=== PATIENT | male | born 1955 | race Caucasian/White ===

== ENCOUNTER 2017-08-28 12:49 | Emergency (ER) | payer OTHER ==
[~2017-08-28] VITALS: Ht 170.2 cm; Wt 60.0 kg
[2017-08-28 12:55] VITALS: BP 145/82; PULSE 99; RESP 16; TEMP 97.9; O2SAT 99
[2017-08-28] MEDS ORDERED: ALBUAER3 INH (13:19)
[2017-08-28] MEDS ORDERED: METH10TA PO (13:19)
[2017-08-28] MEDS ORDERED: FERR325T18 PO (13:19)
[2017-08-28] MEDS ORDERED: GLYC1AER INH (13:19)
[2017-08-28] MEDS ORDERED: LISI10TA3 PO (13:19)
[2017-08-28] MEDS ORDERED: SODIUM CHLOR 0.9% 1000 ML INJ 1,000 ML IV SCH (13:33)
[2017-08-28] MEDS ORDERED: SODIUM CHLORIDE 0.9% FLUSH 10 ML FLUSH IV FLUSH PRN (13:45)
--- NOTE | 2017-08-28 13:51 | PD ---
HPI Chief Complaint: Medical Clearance Time Seen by Provider: 13:09 Travel History International Travel<30 days: No Contact w/Intl Traveler<30days: No Traveled to known affect area: No History of Present Illness HPI Patient is a 61-year-old male who was sent to the emergency room for evaluation. Patient reports that he has suffered a 55 pound weight loss over the past year, reports that he has seen multiple specialists including the dispensary clerk and had a negative EGD as well as a colonoscopy. Patient reports that he follow-up with his primary care doctor on August 22, reports that he looked at his lab work and was concerned that patient was in renal failure. PCP instructed patient to go directly to the emergency room as patient was told that they would if he did not come to the emergency room. Patient presents to the ER with a prescription for a "Stat" evaluation. Patient at this time denies any chest pain or shortness of breath, denies any abdominal pain, denies any nausea or vomiting. Patient denies any fevers or chills. Patient with no history of renal disease, he does present with a copy of his lab work which was obtained on July 31, 2017. BUN was 10, creatinine was 3.67. PFSH Past Medical History Arthritis: Yes COPD: Yes Hypertension: Yes Respiratory: Yes Pneumonia: Yes Past Surgical History Other Surgery: Yes (cyst removal) Social History Alcohol Use: No Tobacco Use: Yes (8 cig/day) Substance Use: No Allergies-Medications (Allergen,Severity, Reaction): Coded Allergies: Penicillins (Verified Allergy, Unknown, Swelling, 08/28/17) ciprofloxacin (Verified Allergy, Unknown, ams, 08/28/17) Reported Meds & Prescriptions Reported Meds & Active Scripts Active Reported Methadone (Methadone HCl) 10 Mg Tab 50 Mg PO DAILY Proair Hfa 8.5 GM Inh (Albuterol Sulfate) 90 Mcg/Act Aer 1 Puff INH Q4H PRN 108 mcg/actuation Bevespi Aerosphere 9-4.8 Mcg/Act (Glycopyrrolate-Formoterol Fuma) 9 Mcg-4.8 Mcg Aer 2 Puff INH BID Lisinopril 10 Mg Tab 10 Mg PO DAILY Ferrous Sulfate 325 Mg (65 Mg Iron) Tablet 325 Mg PO TIDPC Review of Systems General / Constitutional: Positive: Other (55 pound weight loss over the past year), No: Fever Eyes: No: Visual changes HENT: No: Headaches Cardiovascular: No: Chest Pain or Discomfort Respiratory: No: Shortness of Breath Gastrointestinal: No: Abdominal Pain Genitourinary: No: Dysuria Musculoskeletal: No: Pain Skin: No Rash Neurologic: No: Weakness Psychiatric: No: Depression Endocrine: No: Polydipsia Hematologic/Lymphatic: No: Easy Bruising Physical Exam Narrative GENERAL: NAD SKIN: Focused skin assessment warm/dry. HEAD: Atraumatic. Normocephalic. EYES: Pupils equal and round. No scleral icterus. No injection or drainage. ENT: No nasal bleeding or discharge. Mucous membranes pink and moist. NECK: Trachea midline. No JVD. CARDIOVASCULAR: Regular rate and rhythm. No murmur appreciated. RESPIRATORY: No accessory muscle use. Clear to auscultation. Breath sounds equal bilaterally. GASTROINTESTINAL: Abdomen soft, non-tender, nondistended. Hepatic and splenic margins not palpable. MUSCULOSKELETAL: No obvious deformities. No clubbing. No cyanosis. No edema. NEUROLOGICAL: Awake and alert. No obvious cranial nerve deficits. Motor grossly within normal limits. Normal speech. PSYCHIATRIC: Appropriate mood and affect; insight and judgment normal. Data Data Last Documented VS Vital Signs Date Time Temp Pulse Resp B/P (MAP) Pulse Ox O2 Delivery O2 Flow Rate FiO2 08/28/17 12:55 97.9 99 16 145/82 (103) 99 Orders Orders Complete Blood Count With Diff (08/28/17 13:33) Comprehensive Metabolic Panel (08/28/17 13:33) Prothrombin Time / Inr (Pt) (08/28/17 13:33) Act Partial Throm Time (Ptt) (08/28/17 13:33) Urinalysis - C+S If Indicated (08/28/17 13:33) Iv Access Insert/Monitor (08/28/17 13:33) Oximetry (08/28/17 13:33) Sodium Chlor 0.9% 1000 Ml Inj (Ns 1000 M (08/28/17 13:33) Sodium Chloride 0.9% Flush (Ns Flush) (08/28/17 13:45) Labs Laboratory Tests Test 08/28/17 13:48 08/28/17 14:34 White Blood Count 8.5 TH/MM3 Red Blood Count 3.44 MIL/MM3 Hemoglobin 10.3 GM/DL Hematocrit 30.8 % Mean Corpuscular Volume 89.3 FL Mean Corpuscular Hemoglobin 29.9 PG Mean Corpuscular Hemoglobin Concent 33.5 % Red Cell Distribution Width 14.9 % Platelet Count 231 TH/MM3 Mean Platelet Volume 7.8 FL Neutrophils (%) (Auto) 57.3 % Lymphocytes (%) (Auto) 32.0 % Monocytes (%) (Auto) 8.1 % Eosinophils (%) (Auto) 2.1 % Basophils (%) (Auto) 0.5 % Neutrophils # (Auto) 4.9 TH/MM3 Lymphocytes # (Auto) 2.7 TH/MM3 Monocytes # (Auto) 0.7 TH/MM3 Eosinophils # (Auto) 0.2 TH/MM3 Basophils # (Auto) 0.0 TH/MM3 CBC Comment DIFF FINAL Differential Comment Prothrombin Time 10.2 SEC Prothromb Time International Ratio 1.0 RATIO Activated Partial Thromboplast Time 26.5 SEC Blood Urea Nitrogen 26 MG/DL Creatinine 1.52 MG/DL Random Glucose 95 MG/DL Total Protein 7.3 GM/DL Albumin 3.7 GM/DL Calcium Level 8.7 MG/DL Alkaline Phosphatase 92 U/L Aspartate Amino Transf (AST/SGOT) 16 U/L Alanine Aminotransferase (ALT/SGPT) 15 U/L Total Bilirubin 0.2 MG/DL Sodium Level 137 MEQ/L Potassium Level 3.9 MEQ/L Chloride Level 104 MEQ/L Carbon Dioxide Level 23.8 MEQ/L Anion Gap 9 MEQ/L Estimat Glomerular Filtration Rate 47 ML/MIN Urine Color YELLOW Urine Turbidity CLEAR Urine pH 5.0 Urine Specific [place] 1.008 Urine Protein NEG mg/dL Urine Glucose (UA) NEG mg/dL Urine Ketones NEG mg/dL Urine Occult Blood NEG Urine Nitrite NEG Urine Bilirubin NEG Urine Urobilinogen LESS THAN 2 mg/dL Urine Leukocyte Esterase TRACE Urine WBC 1 /hpf Microscopic Urinalysis Comment CULT NOT INDICATED MDM Medical Decision Making Medical Screen Exam Complete: Yes Emergency Medical Condition: Yes Medical Record Reviewed: Yes Interpretation(s) Vital Signs Date Time Temp Pulse Resp B/P (MAP) Pulse Ox O2 Delivery O2 Flow Rate FiO2 08/28/17 12:55 97.9 99 16 145/82 (103) 99 Differential Diagnosis Renal failure, obstruction, electrolyte abnormality Narrative Course During the course of the patients emergency department visit, the patients history, examination, and differential diagnosis were reviewed with the patient. The patient was placed on a teletypesetter monitor with oximetry and frequent blood pressure monitoring. The patient had an IV access obtained and blood work sent for analysis. The patient was initially provided with IVF The patients laboratory studies were reviewed and remarkable for CBC & BMP Diagram 08/28/17 13:48 Total Protein 7.3, Albumin 3.7, Calcium Level 8.7, Alkaline Phosphatase 92, Aspartate Amino Transf (AST/SGOT) 16, Alanine Aminotransferase (ALT/SGPT) 15, Total Bilirubin 0.2 INR 1.0 UA: trace leuk esterase, hgb 10.3 which is at his baseline when compared to his previous labs (patient presents to ER with past lab work) Vital Signs Date Time Temp Pulse Resp B/P (MAP) Pulse Ox O2 Delivery O2 Flow Rate FiO2 08/28/17 12:55 97.9 99 16 145/82 (103) 99 Patient this time suffers no medical emergencies, his lab work and vital signs have been reviewed with patient, plan for patient to follow-up with his primary care doctor and will have him return to emergency room as needed. Patient with no complaints at this time Diagnosis Primary Impression: Renal insufficiency Additional Impression: Anemia Qualified Codes: D64.9 - Anemia, unspecified Patient Instructions: General Instructions Additional Instructions: Please provide patient with a copy of their lab work and studies at discharge* * Please follow up with your primary care doctor in 2-3 days Return to the ER if symptoms worsen or progress Return to the ER as needed Please bring a copy of your lab work today to doctor's office for follow-up Disposition: 01 DISCHARGE HOME Condition: Stable Margaret Kohler DO Aug 28, 2017 13:51
[2017-08-28 14:11] LABS: AUTOMATED NEUTROPHIL # 4.9 TH/MM3 (1.8-7.7); BASOPHIL % 0.5 % (0.0-2.0); EOSINOPHIL # 0.2 TH/MM3 (0-0.4); EOSINOPHIL % 2.1 % (0.0-4.0); HEMATOCRIT 30.8 % (39.0-51.0); HEMOGLOBIN 10.3 GM/DL (13.0-17.0); LYMPHOCYTE # 2.7 TH/MM3 (1.0-4.8); MEAN CELL VOLUME 89.3 FL (80.0-100.0); MEAN CORPUSCULAR HEMOGLOBIN 29.9 PG (27.0-34.0); MEAN CORPUSCULAR HGB CONC 33.5 % (32.0-36.0); MEAN PLATELET VOLUME 7.8 FL (7.0-11.0); MONO % 8.1 % (0.0-8.0); MONOCYTE # 0.7 TH/MM3 (0-0.9); NEUT % 57.3 % (16.0-70.0); PLATELET COUNT 231 TH/MM3 (150-450); RED BLOOD COUNT 3.44 MIL/MM3 (4.50-5.90); RED CELL DISTRIBUTION WIDTH 14.9 % (11.6-17.2); WHITE BLOOD COUNT 8.5 TH/MM3 (4.0-11.0)
[2017-08-28 14:23] LABS: PROTHROMBIN TIME - PATIENT 10.2 SEC (9.8-11.6)
[2017-08-28 14:25] LABS: ALBUMIN 3.7 GM/DL (3.4-5.0); ALT (GPT) 15 U/L (12-78); AST (GOT) 16 U/L (15-37); BICARBONATE 23.8 MEQ/L (21.0-32.0); BLOOD UREA NITROGEN 26 MG/DL (7-18); CALCIUM 8.7 MG/DL (8.5-10.1); CHLORIDE 104 MEQ/L (98-107); CREATININE 1.52 MG/DL (0.60-1.30); GLOMERULAR FILTRATION RATE 47 ML/MIN (>89); GLUCOSE,RANDOM 95 MG/DL (74-106); SODIUM (NA) 137 MEQ/L (136-145)
[2017-08-28 14:28] LABS: ALKALINE PHOSPHATASE 92 U/L (45-117); TOTAL BILIRUBIN ADULT 0.2 MG/DL (0.2-1.0); TOTAL PROTEIN 7.3 GM/DL (6.4-8.2)
[2017-08-28 14:47] LABS: BILIRUBIN, URINE NEG (NEG); BLOOD, URINE NEG (NEG); GLUCOSE,URINE NEG (NEG); KETONE, URINE NEG (NEG); NITRITE,URINE NEG (NEG); URINE COLOR YELLOW (YELLW/STRAW); URINE LEUKOCYTE ESTERASE TRACE (NEG)
== END 2017-08-28 16:38 | disposition home or self-care (01) ==
LOC: NEPD 12:49
DX: N28.9 Disorder of kidney and ureter, unspecified (principal); D64.9 Anemia, unspecified; R63.4 Abnormal weight loss; J44.9 Chronic obstructive pulmonary disease, unspecified; I10 Essential (primary) hypertension; F17.210 Nicotine dependence, cigarettes, uncomplicated; Z79.899 Other long term (current) drug therapy
CPT/HCPCS: 80053; 81001; 85025; 85610; 85730; 96360; 99284; J7030